=== PATIENT | female | born 1935 | race Caucasian/White ===

== ENCOUNTER 2017-12-25 11:55 | Emergency (ER) ==
[2017-12-25] MEDS: ATROPINE SULFATE PFS IVP PRN ×3 (11:58→12:26)
[2017-12-25] MEDS ORDERED: CORDARONE IVP PRN (12:00)
[2017-12-25] MEDS ORDERED: SODIUM CHLORIDE 1,000 ML IV STA (12:00)
[2017-12-25] MEDS ORDERED: EPINEPHRINE 1:10,000 SYRINGE IV PRN (12:00)
[2017-12-25 12:04] VITALS: TEMP 95.5; BMI 26.4
[2017-12-25] MEDS: SODIUM BICARBONATE 7.5% IVP PRN ×2 (12:07→12:48)
[2017-12-25] MEDS ORDERED: MAGNESIUM SULFATE 1 GM/2 ML VIAL IVP STA (12:19)
[2017-12-25] MEDS ORDERED: LIDOCAINE HCL 2% LUER-JET IVP STA (12:22)
[2017-12-25] MEDS ORDERED: DOBUTAMINE IV SCH (12:30)
[2017-12-25] MEDS ORDERED: D5W IV SCH (12:30)
--- NOTE | 2017-12-25 12:36 | DI ---
EXAM: Chest one view, frontal view only. HISTORY: Cardiac arrest. COMPARISON: None available. FINDINGS: Three images were obtained. The first two images demonstrate endotracheal tube positioned in the right main bronchus. The third image demonstrates the tube to be approximately 1.6 cm above the blayne. There is consolidation of the upper lung zones bilaterally. Lung bases are clear withou t pleural effusion. No pneumothorax identified. No rib fractures seen. Heart size is at the upper limits of normal. Mediastinal structures are midline. External defibrillator pad seen over the righ t chest. Various external monitoring wires are present. IMPRESSION: 1. Endotracheal tube by approximately 1.6 cm above the blayne on the final image. 2. Upper lung consolidation bilaterally.
--- NOTE | 2017-12-25 12:48 | ED.PDOC ---
General ED Provider: Dr. JORGE HAWKINS Chief Complaint: Cardiac Arrest Stated Complaint: cardiac arrest Time Seen by Physician: 11:51 (arrived post arrest in asystole withBVM ) Mode of Arrival: Ambulance Information Source: EMT, Other Nursing and Triage Documentation Reviewed and Agree: Yes Reviewed sepsis parameters & appropriate labs ordered?: Yes System Inflammatory Response Syndrome: Acutely Altered Mental Status Sepsis Protocol: For patient's 13 years and over: Temp is 96.8 and below OR 101 and greater Pulse >90 BPM Resp >20/minute Acutely Altered Mental Status Are patient's symptoms suggestive of a new infection, such as: -Pneumonia -Skin, Soft Tissue -Endocarditis -UTI -Bone, Joint Infection -Implantable Device -Acute Abdominal Infection -Wound Infection -Meningitis -Blood Stream Catheter Infection -Unknown System Inflammatory Response Syndrome: Not Applicable Cardiac Resuscitation - Cardiac Resuscitation/Physical Exam Onset/Duration: Prior to arrival (at [facility] at 11:30 am emt got a radio call / transported pt to [facility] ED 11:51) Witnessed Arrest: Yes ( STATED PT'S COLLAPSED AND HAD BLUE LIPS) Down-time Before BLS Initiated: [employer] 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 Down-time Before ALS Initiated: 15 MIN Airway Prehospital Findings: Reports: Patent, Gag reflex absent Breathing Prehospital Findings: Reports: Apnea Circulation/Rhythm Prehospital Findings: Reports: Asystole Disability/Neurological Prehospital Findings: Reports: Unresponsive Airway Prehospital Intervention: Reports: Chin lift, Jaw thrust, Oral airway ( PRIOR TO ARRIVAL) Breathing Prehospital Intervention: Reports: Bag-valve mask Circulation/Rhythm Prehospital Intervention: Reports: Chest compressions, IV/IO placed (IV ESTABLISHED AT EMT ARRIVAL ), Epinephrine Airway Prehospital Response: BVM Circulation/Rhythm Prehospital Response: Present: Asystole, Sinus Bradycardia ( ON ARRIVAL WAS IN ASYSTOLE, PEA , INTERMITTENT VTACH WITH AND W/O PLUSE ), V- Tach, PEA 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 Airway ED Findings: Patent, Gag reflex absent Breathing ED Findings: Present: Apnea Circulation/Rhythm ED Findings: Present: Pulses absent, Asystole, PEA Disability/Neurological ED Findings: Present: Unresponsive Airway ED Intervention: Chin lift, Jaw thrust Breathing ED Intervention: Oxygen, Bag-valve mask, ETT replaced (2 MIN AFTER ARRIVAL 11:53 AM ), Intubated by ED physician Circulation/Rhythm ED Intervention: Chest compressions, IV/IO placed, Epinephrine, Atropine Airway ED Response: INTUBATED Breathing ED Response: ETT in airway, Equal breath sounds, Confirmed by auscultation, Confirmed by CO2 detector Circulation/Rhythm ED Response: Present: Pulses present (AFTER CARDIOVERSION, BUT LOST AGAIN , OBTAINED AND LOST SEVERAL TIMES ), Asystole, V-Tach, PEA Right Pupil: Fixed, Dilated (AT ALL TIMES ) Left Pupil: Fixed, Dilated Review Of Systems: Unable due to extremis EMS/Code Sheet Reviewed: Yes Patient is a DNR: No ( IN E/D DID NOT STATE DNR) Patient Has a Living Will: No (TO [employer]ST OF OUR KNOWLEDGE ) Differential Diagnoses: Acute TX, Asystole, PEA Quality Indicator For Non-Traumatic Chest Pain/Syncope: EKG Performed Past Medical History - Past Medical History Endocrine: Reports: Unknown Cardiovascular: Reports: CAD, [place] Respiratory: Reports: Unknown Hematological: Reports: Unknown Gastrointestinal: Reports: Other Genitourinary: Reports: Other Neuro/Psych: Reports: Other Musculoskeletal: Reports: Other Cancer: Reports: Other Last Menstrual Period: NA - Surgical History General Surgical History: Reports: Unknown - Family History Family History: Reports: Unknown - Social History Smoking Status: Never smoker Hx Substance Use: No Alcohol Screening: None Interpretation - Radiology Interpretation Radiology Interpretation By: ED Physician Exam Interpreted: CXR (INTUBATED TUBE CONFIRMED AND REPOSTIONED ) Procedures - Intubation Indication: Present: Respiratory Insufficiency, Altered Mental Status, Airway Protection Time of Intubation: 11:53 (CRASH INTUBATION) Medications: No: Norcuron, Succinylcholine, Versed, Propofol Type of Tube Used: Endotracheal Cricoid Pressure Used: Yes Tube Mcgovern Used: Yes Position of Tube at Lip: 21 CM Number of Attempts: 1 Suction Used: Yes Glidescope Used: No CO2 Detector Used: Yes Lung Sounds Equal Bilaterally: Yes Intubation Complications: Present: No complications Tube Inserted By: RAFATI Tube Placement Verified by X-ray: Yes Physician Notification - Case Discussed Physician Notified: MARLIN NUGENT Time of Notification: 12:57 (TRANSFER ) Critical Care Note - Critical Care Note Total Time (mins): 60 Course - Course Hematology/Chemistry: 12/25/17 12:05 12/25/17 12:05 Orders, Labs, Meds: Lab Review 12/25/17 12/25/17 12:05 12:05 WBC 8.10 RBC 3.60 L Hgb 11.4 L Hct 35.5 L MCV 98.6 MCH 31.7 H MCHC 32.1 RDW Coeff of Marycarmen 13.3 Plt Count 130 L Immature Gran % (Auto) 2.0 Neut % (Auto) 23.4 Lymph % (Auto) 62.0 H [place] % (Auto) 10.5 H Eos % (Auto) 1.5 Baso % (Auto) 0.6 Immature Gran # (Auto) 0.2 Neut # (Auto) 1.9 L Lymph # (Auto) 5.0 H [place] # (Auto) 0.9 Eos # (Auto) 0.1 Baso # (Auto) 0.1 Sodium 144 Potassium 3.1 L Chloride 110 H Carbon Dioxide 17 L Anion Gap 20.1 BUN 13 Creatinine 1.09 Estimated GFR (MDRD) 48.00 BUN/Creatinine Ratio 11.92 Glucose 298 H Calcium 8.0 L Total Bilirubin 0.3 AST 30 ALT 17 Alkaline Phosphatase 59 Total Creatine Kinase 60 Troponin I 0.0110 Total Protein 5.2 L Albumin 2.5 L Globulin 2.7 Albumin/Globulin Ratio 0.93 Orders Category Date Time Status ABG DRAW REQUEST Stat CARDIO 12/25/17 12:21 Ordered CPR - ED ONLY Stat CARDIO 12/25/17 12:00 Ordered EKG-(ED ONLY) Stat CARDIO 12/25/17 12:02 Ordered EKG-(ED ONLY) Stat CARDIO 12/25/17 12:45 Ordered EKG-(ED ONLY) Stat CARDIO 12/25/17 12:45 Ordered EKG-(ED ONLY) Stat CARDIO 12/25/17 12:45 Ordered EKG-(ED ONLY) Stat CARDIO 12/25/17 12:45 Ordered ED INSPECTOR TOYS APPLIED .ONCE EMERGENCY 12/25/17 12:00 Active ED IV/MEDIPORT/POWERPORT .ONCE EMERGENCY 12/25/17 12:00 Active ABG Stat LAB 12/25/17 12:21 Ordered CBC W/ AUTO DIFF Stat LAB 12/25/17 12:05 Received COMPREHENSIVE METABOLIC PANEL Stat LAB 12/25/17 12:05 Received CREATINE KINASE Stat LAB 12/25/17 12:05 Received TROPONIN I Stat LAB 12/25/17 12:05 Received 0.9 % Sodium Chloride [Saline Flush] MEDS 12/25/17 12:00 Active 1 syr IVF PRN PRN 0.9 % Sodium Chloride [Sodium Chloride] 246 ml MEDS 12/25/17 13:00 Active Norepinephrine Bitartrate Inj [Levophed] 4 mg IV 8 mcg/min Amiodarone HCl Inj [Cordarone] MEDS 12/25/17 12:00 Active 150 - 300 mg IVP PRN PRN Atropine Sulfate Inj [Atropine Sulfate Pfs] MEDS 12/25/17 12:00 Active 1 mg IVP PRN PRN DOBUTAMINE HCL/D5W(250ml) MEDS 12/25/17 12:30 Ordered Premix 250 ml D5w 1 bag Dobutamine HCl/D5w [Dobutamine] 250 mg IV 1 mcg/kg/min Dextrose 5 %-Water [Dextrose 5%-Water IV Soln] 246 ml MEDS 12/25/17 13:00 Active Norepinephrine Bitartrate Inj [Levophed] 4 mg IV 8 mcg/min Epinephrine [Epinephrine 1:10,000 Syringe] MEDS 12/25/17 12:00 Active 1 mg IV PRN PRN Lidocaine HCl/Pf [Lidocaine HCl 2% Luer-Jet] MEDS 12/25/17 12:22 Stat 100 mg IVP ONCE STA Magnesium Sulfate Vial [Magnesium Sulfate 1 gm/2 ml MEDS 12/25/17 12:19 Stat Vial] 2 gm IVP ONCE STA Sodium Bicarb 7.5% [Sodium Bicarbonate 7.5%] MEDS 12/25/17 12:05 Ordered 44.6 meq IVP ONCE PRN CHEST, 1V AP ONLY Stat RADS 12/25/17 12:02 Ordered CHEST, 1V AP ONLY Stat RADS 12/25/17 12:45 Ordered Medications Generic Name Dose Route Start Last Admin Trade Name Freq PRN Reason Stop Dose Admin Amiodarone HCl 150 - 300 mg 12/25/17 12:00 12/25/17 12:04 Cordarone IVP 150 mg PRN PRN Administration DIRECTED BY PHYSICIAN-CODE Atropine Sulfate 1 mg 12/25/17 12:00 12/25/17 12:26 Atropine Sulfate Pfs IVP 1 mg PRN PRN Administration DIRECTED BY PHYSICIAN-CODE Epinephrine HCl 1 mg 12/25/17 12:00 12/25/17 11:59 Epinephrine 1:10,000 Syringe IV 1 mg PRN PRN Administration DIRECTED BY PHYSICIAN-CODE Dobutamine HCl/Dextrose 250 mg 250 mls @ 4.72 mls/hr 12/25/17 12:30 12/25/17 12:29 / Dextrose IV 1 mcg/kg/min .Q24H BRYAN 4.72 mls/hr Administration Protocol 1 MCG/KG/MIN Norepinephrine Bitartrate 4 mg 250 mls @ 30 mls/hr 12/25/17 13:00 / Dextrose IV .Q8H20M BRYAN Protocol 8 MCG/MIN Sodium Bicarbonate 44.6 meq 12/25/17 12:05 Sodium Bicarbonate 7.5% IVP ONCE PRN CARDIAC ARREST Sodium Chloride 1 syr 12/25/17 12:00 Saline Flush IVF PRN PRN To flush IV Discontinued Medications Generic Name Dose Route Start Last Admin Trade Name Freq PRN Reason Stop Dose Admin Norepinephrine Bitartrate 4 mg 250 mls @ 30 mls/hr 12/25/17 13:00 / Sodium Chloride IV .Q8H20M BRYAN Protocol 8 MCG/MIN Lidocaine HCl 100 mg 12/25/17 12:22 Lidocaine Hcl 2% Luer-Jet IVP 12/25/17 12:23 ONCE STA Magnesium Sulfate 2 gm 12/25/17 12:19 12/25/17 12:14 Magnesium Sulfate 1 Gm/2 Ml Vial IVP 12/25/17 12:20 2 gm ONCE STA Administration Vital Signs: Temp Pulse Resp BP Pulse Ox 12/25/17 12:29 75 82/54 L 12/25/17 12:19 70 108/0 L 12/25/17 11:56 95.5 F L 0 L 0 L 0/0 L 0 L Departure - Departure Time of Disposition: 12:57 Disposition: TSF SHORT-TRM HOSP Discharge Problem: Cardiac arrest, Acute TX, inferior wall Condition: Good Pt referred to PMD for follow-up: Yes IPMP verified?: No
[2017-12-25 12:51] VITALS: BP 99/60
[2017-12-25] MEDS ORDERED: LEVOPHED 4 MG in DEXTROSE 5%-WATER IV SOLN 246 ML IV SCH (13:00)
[2017-12-25] MEDS ORDERED: LEVOPHED 4 MG in SODIUM CHLORIDE 246 ML IV SCH (13:00)
== END 2017-12-25 13:10 | disposition short-term general hospital (02) ==
LOC: ED 11:55 → EDBD 11:55 → ED 13:10
DX: I21.19 ST elevation (STEMI) myocardial infarction involving other coronary artery of inferior wall (principal); I25.10 Atherosclerotic heart disease of native coronary artery without angina pectoris; I25.2 Old myocardial infarction; R40.2431 Glasgow coma scale score 3-8, in the field [EMT or ambulance]; S00.83XA Contusion of other part of head, initial encounter
CPT/HCPCS: 36415; 80053; 82550; 82803; 84484; 85025; 93005; 93010; 96361; 96365; 96367; 96368; 96375; 99291